=== PATIENT | male | born 1965 | race Caucasian/White ===

== ENCOUNTER 2022-02-11 11:49 | Emergency (ER) | payer OTHER, SELFPAY ==
[2022-02-11 12:07] VITALS: BP 147/88; PULSE 58; RESP 20; TEMP 36.6; O2SAT 100
[2022-02-11] MEDS: Lidocaine 2% Multi-Dose 50 ML VIAL (12:34)
--- NOTE | 2022-02-11 13:12 | W.ED.GENAD ---
Discharge Plan Disposition Patient Disposition: HOME Condition: Improving Discharge Details Clinical Impression: Laceration of forearm, left Primary Care Provider: None,None ED Provider: Timur Mireles Home Meds and New Rx's Prescriptions: New cephalexin 500 mg tablet 500 mg PO QID 4 Days Qty: 16 0RF Discharge Instructions Instructions: Laceration (ED) Additional Instructions: Watch for any signs of infection and return immediately to the emergency department if these occur. Otherwise keep dressing in place for the next 24-48 hours and then keep wound clean and dry. Return to the emergency department 10-14 days for suture removal. Referrals: Primary Care Provider [Outside] Discharge Data Discharge Date/Time-TO BE ENTERED AT DEPARTURE: 02/11/22 13:36 Medical Decision Making Patient presenting to the emergency department for laceration to left forearm. Patient states that chainsaw excellently bounced off a branch and struck him in the left forearm. Patient denies any other injury or trauma. Physical exam shows a 4 cm superficial laceration to the ulnar aspect of the left forearm. Distal to injury CMS is intact. Patient has no bony tenderness. Wound only involves the subcutaneous tissue. Due to mechanism of injury patient was offered radiological imaging to ensure no bony involvement which patient declined radiological imaging. Patient states understanding of risk versus benefit of imaging. Please see wound repair for repair of laceration. Patient placed upon 5 days of Keflex due to potential for infection. After discussion of diagnosis and plan of care patient has no further needs, questions, or concerns and states clear understanding to return to the emergency department for any worsening symptoms. This documentation was generated using [employer] dictation system, please disregard any oddities of phrase or misspellings. HPI General Mode of arrival: ambulatory. Date/Time Provider Initiated Documentation: 02/11/22 11:52. Limitations to Documentation: no limitations. Information obtained by: patient and RN notes reviewed. History of Present Illness 56 year old M presents to the emergency department with the chief complaint of left forearm laceration , described as mild, Quality is described as other (denies pain ), Patient started experiencing this hour(s) (1) and it has been constant. No relieving factors improve symptom(s), No exacerbating factors reported . Patient notes no other symptoms.. Patient did receive the following treatments prior to arrival, none Related Data Home Medications Medication Instructions Recorded Confirmed cephalexin 500 mg tablet 500 mg PO QID 4 days #16 tabs 02/11/22 Previous Rx's Medication Instructions Recorded cephalexin 500 mg tablet 500 mg PO QID 4 days #16 tabs 02/11/22 Allergies Allergy/AdvReac Type Severity Reaction Status Date / Time No Known Allergies Allergy Unverified 02/11/22 12:10 General Stated Complaint: Laceration LYLE: 4 Review of Systems Cardiovascular Cardiovascular: Denies syncope and Denies lightheadedness Musculoskeletal Musculoskeletal: Denies deformity, Denies limited range of motion and Denies numbness Integumentary/Breasts Skin/Breast: Reports as per HPI Neurologic Neurologic: Denies syncope, Denies numbness and Denies paresthesias PFSH All Active Problems Laceration of forearm, left (Acute) Social History Smoking/Tobacco Use Status: Never Smoking risk assessment performed?: Yes Alcohol Intake: current Alcohol Intake frequency: a few times a month Alcohol type: beer Drug use: Occasionally Substance use type: marijuana Do you feel safe at home: Yes Do you feel safe in your relationship?: Yes Exam Const General: cooperative and no acute distress Orientation: alert, awake and oriented x3 Limitations: mental status not altered Resp Effort & Inspection: normal respiratory effort and able to speak in complete sentences Cardio Rate: regular rate Rhythm: regular rhythm Pulses: normal peripheral pulses Neuro General: patient alert, patient awake, patient oriented x3, gait normal, tone normal, moves all extremities, normal light touch, pain and propioception and no focal motor deficits Motor: no movement abnormalities noted Sensory Exam: no sensory deficits noted Extrem General: normal exam except as noted Left upper extremity: elbow/forearm Details: laceration (4cm) forearm distal Details: linear, actively bleeding, involving subcutaneous tissue, with motor nerve function intact and with sensation intact; not contaminated Course Vital Signs Vital signs: Vital Signs Temperature 36.6 C 02/11/22 12:07 Pulse 58 L 02/11/22 12:07 Respiratory Rate 20 02/11/22 12:07 Blood Pressure 147/88 H 02/11/22 12:07 Pulse Oximetry 100 02/11/22 12:07 Temperature 36.6 C 02/11/22 12:07 Temperature Source Temporal Artery Scan 02/11/22 12:07 Pulse 58 L 02/11/22 12:07 Respiratory Rate 20 02/11/22 12:07 Respiratory Effort Non-Labored 02/11/22 12:10 Blood Pressure 147/88 H 02/11/22 12:07 Blood Pressure Position Sitting 02/11/22 12:07 Pulse Oximetry 100 02/11/22 12:07 Pain Level 0 02/11/22 12:07 Procedures Laceration Laceration 1: Site: upper extremity Side (If applicable): left Size (cm): 4 Description: linear and clean Depth: simple, single layer Local Anesthetic: Lidocaine 1% Amount of anesthesia used (mL): 5 Pre-repair: wound explored, irrigated extensively and deep structures intact Skin layer closed with: other (prolene) Size (cm): 4-0 Number of sutures: 4 Technique: simple, interrupted
[2022-02-11] MEDS: Cephalexin 500 MG CAP, 4 CAPS/BTL PO (13:30)
== END 2022-02-11 13:36 | disposition home or self-care (01) ==
PROVIDERS: Emergency Provider Nurse Practitioner Family
DX: S81.812A Laceration without foreign body, left lower leg, initial encounter (principal); Z23 Encounter for immunization; W22.8XXA Striking against or struck by other objects, initial encounter
CPT/HCPCS: 12002; 90471; 99283; 99284

== ENCOUNTER 2024-11-26 02:17 | Outpatient (CLI) | payer BC, SELFPAY ==
--- NOTE | 2024-11-26 07:30 | DI.MRI_ITS ---
Exam(s) MR UPPER EXTREMITY LT WO/W EXAM: MR UPPER EXTREMITY LT WO/W CLINICAL HISTORY: left 2nd finger lesion,F/U US,L98.9 TECHNIQUE: Multiplanar multisequence MRI was performed. COMPARISON: Recent ultrasound of 11/25/2024 was reviewed. FINDINGS: MARROW:There is no evidence of fracture, bone contusion, nor evidence of osteomyelitis. No evidence of bone erosion.. SOFT TISSUES/TENDONS: There is 1.9 x 0.7 x 1.3 cm slightly lobulated mass on the dorsal aspect of the distal 2nd-index finger corresponding to what was described on recent ultrasound. This does not have the appearance of a ganglion cyst. It is isointense to muscle on precontrast T1 weighted sequences and moderately bright on T2/STIR sequences, but less T2 bright than typical glomus tumors. It exhibits internal septations and exhibits relatively uniform internal enhancement following contrast injection. It is intimately related to the extensor tendon sheath. It also extends to contact the dorsal-lateral aspect of the head of the middle phalanx. There is no bone invasion nor erosion evident. There is no effusion in the subjacent distal interphalangeal joint of the index finger. EXTRAMUSCULAR SOFT TISSUES: No abnormal signal, mass, or fluid collection. OTHER: None. IMPRESSION: 1. 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 DATA REPOSITORY:
[2024-11-26] MEDS: Normal Saline Flush 10 ML SYR IVP (11:02)
[2024-11-26] MEDS: Gadoterate meglumine 20 ML SYRINGE IVP (11:02)
== END 2024-11-26 02:37 ==
LOC: DI 02:17
PROVIDERS: PCP Nurse Practitioner Family; Visit Provider Physician Assistant
DX: L98.9 Disorder of the skin and subcutaneous tissue, unspecified (principal); R93.89 Abnormal findings on diagnostic imaging of other specified body structures
CPT/HCPCS: 73220

== ENCOUNTER 2025-03-06 10:29 | Outpatient (REF) | payer BC, SELFPAY ==
[2025-03-06 14:22] LABS: HCT 44.3 % (40.0-50.0); HGB 14.8 g/dL (13.5-17.5); MCH 31.1 pg (27.0-33.0); MCHC 33.4 % (32.0-36.0); MCV 93 fL (80-95); MPV 11.2 fL (8.0-11.0); Platelet Count 218 10^3/uL (130-400); RBC 4.76 10^6/uL (4.36-5.78); RDW 11.9 % (11.8-14.1); RDW-SD 40.7 fL; WBC 4.20 10^3/uL (4.4-10.8)
[2025-03-06 14:59] LABS: Hemoglobin A1C 5.1 % (<5.7)
[2025-03-06 15:02] LABS: Vitamin D 25 Total 28 ng/mL (30-100)
[2025-03-06 15:16] LABS: ALT 52 U/L (10-49); AST 52 U/L (<34); Albumin 4.4 g/dL (3.2-5.0); Alkaline Phosphatase 57 U/L (46-116); Anion Gap 5.9 mmol/L (3-11); BUN 17 mg/dL (9-23); Bilirubin, Total 0.70 mg/dL (0.2-1.2); CO2 30.1 mmol/L (20.0-31.0); Calcium 9.3 mg/dL (8.3-10.6); Chloride 104 mmol/L (98-107); Cholesterol 205 mg/dL (<200); Glucose 91 mg/dL (74-106); HDL Cholesterol 63 mg/dL (>40); Potassium 5.0 mmol/L (3.5-5.1); Sodium 140 mmol/L (136-145); Total Protein 7.1 g/dL (5.7-8.2)
== END 2025-03-06 10:30 | disposition home or self-care (01) ==
LOC: NCHCN 10:29
PROVIDERS: PCP Nurse Practitioner Family
DX: Z13.1 Encounter for screening for diabetes mellitus (principal); Z13.0 Encounter for screening for diseases of the blood and blood-forming organs and certain disorders involving the immune mechanism; E78.00 Pure hypercholesterolemia, unspecified; E55.9 Vitamin D deficiency, unspecified
CPT/HCPCS: 80053; 80061; 82306; 85027; 83036